=== PATIENT | female | born 1975 | race Hispanic/Latino ===

== ENCOUNTER 2017-03-13 21:57 | Emergency (ER) | payer OTHER ==
[2017-03-13 22:34] VITALS: BP 139/83; PULSE 62; RESP 18; TEMP 98.5; O2SAT 98
[2017-03-13] MEDS ORDERED: Sodium Chloride 0.9% 1,000 ML IV STA (23:24)
--- NOTE | 2017-03-14 00:23 | ED PDOC ---
Syncope/Near Syncope/Dizziness Time Seen by Provider: 03/13/17 23:17 Chief Complaint (Nursing): Dizziness/Lightheaded Chief Complaint (Provider): Dizziness History Per: Patient History/Exam Limitations: no limitations Current Symptoms Are (Timing): Still Present Additional History Per: Patient Additional Complaint(s): 41yo female with no past medical history, presents to ED with complaints of dizziness, stating she feels like she will pass out. Patient reports feeling "dehydrated" and is unsure of when she last drank water. She states she only drinks coffee all day. She denies any chest pain, shortness of breath, nausea, vomiting, or urinary symptoms. She has no other medical complaints. Past Medical History Reviewed: Historical Data, Nursing Documentation, Vital Signs Vital Signs: Last Vital Signs Temp 98.5 F 03/13/17 22:30 Pulse 62 03/13/17 22:30 Resp 18 03/13/17 22:30 BP 139/83 03/13/17 22:30 Pulse Ox 98 03/13/17 22:30 - Medical History PMH: No Chronic Diseases - Surgical History Surgical History: No Surg Hx - Family History Family History: States: No Known Family Hx - Allergies Allergies/Adverse Reactions: Allergies Allergy/AdvReac Type Severity Reaction Status Date / Time shellfish derived Allergy RASH Verified 03/13/17 22:35 Review of Systems ROS Statement: Except As Marked, All Systems Reviewed And Found Negative Constitutional: Negative for: Fever Cardiovascular: Positive for: Light Headedness. Negative for: Chest Pain Respiratory: Negative for: Shortness of Breath Gastrointestinal: Negative for: Nausea, Vomiting Genitourinary Female: Negative for: Dysuria, Frequency, Hematuria Neurological: Positive for: Dizziness Physical Exam - Reviewed Nursing Documentation Reviewed: Yes Vital Signs Reviewed: Yes - Physical Exam Appears: Positive for: Non-toxic, No Acute Distress Head Exam: Positive for: ATRAUMATIC, NORMAL INSPECTION, NORMOCEPHALIC Skin: Positive for: Normal Color, Warm, Dry Eye Exam: Positive for: Normal appearance, EOMI, PERRL Neck: Positive for: Supple Cardiovascular/Chest: Positive for: Regular Rate, Rhythm Respiratory: Positive for: Normal Breath Sounds. Negative for: Respiratory Distress Gastrointestinal/Abdominal: Positive for: Soft. Negative for: Tenderness Extremity: Positive for: Normal ROM. Negative for: Deformity Neurologic/Psych: Positive for: Alert, Oriented. Negative for: Motor/Sensory Deficits - Laboratory Results Result Diagrams: 03/13/17 00:30 03/13/17 00:30 - ECG O2 Sat by Pulse Oximetry: 98 (RA) Pulse Ox Interpretation: Normal Medical Decision Making Medical Decision Making: Impression: Dehydration, electrolyte imbalance Plan: -- EKG -- Labs -- IV Fluids Time: 0152 Labs reviewed and within normal limits. Upon reevaluation, patient states she feels much better. Patient informed to follow up with PCP in 1-2 days and is stable for discharge home. Scribe Attestation: Documented by Malathi Ramachandran, acting as a scribe for Awais Johnson MD Provider Scribe Attestation: All medical record entries made by the Scribe were at my direction and personally dictated by me. I have reviewed the chart and agree that the record accurately reflects my personal performance of the history, physical exam, medical decision making, and the department course for this patient. I have also personally directed, reviewed, and agree with the discharge instructions and disposition. Disposition - Clinical Impression Clinical Impression: Dizziness, Dehydration - Disposition Referrals: [facility] [Outside] Disposition: Routine/Home Disposition Time: 01:53 Condition: STABLE Instructions: Dehydration (ED), Lightheadedness (ED) Forms: [employer] ([place]ian)
[2017-03-14 00:58] LABS: HEMOGLOBIN 13.9 g/dL (12.0-16.0); MEAN CELL VOLUME 101.3 fl (81.0-99.0); MEAN CORPUSCULAR HEMOGLOBIN 33.3 pg (27.0-31.0); MEAN CORPUSCULAR HGB CONC 32.9 g/dL (33.0-37.0); RBC 4.16 Mil/uL (3.80-5.20); RED CELL DISTRIBUTION WIDTH 12.4 % (11.5-14.5); WHITE BLOOD COUNT 5.4 K/uL (4.8-10.8)
[2017-03-14 01:03] LABS: BLOOD UREA NITROGEN 14 mg/dl (7-17); CALCIUM 9.3 mg/dL (8.4-10.2); GFR AFRICAN-AMERICAN > 60; GFR NON-AFRICAN AMERICAN > 60
--- NOTE | 2017-03-14 17:17 | CARD ---
APPROVED REPORT EKG Measurement Heart [id number] <Conclusion> Normal sinus rhythm Normal ECG
== END 2017-03-14 03:20 | disposition home or self-care (01) ==
LOC: H.ER 21:57
DX: E86.0 Dehydration (principal); R42 Dizziness and giddiness
CPT/HCPCS: 80048; 81025; 84443; 85027; 93005; 99284; J7040